=== PATIENT | male | born 1975 | race African-American/Black ===

== ENCOUNTER 2018-12-31 18:06 | Emergency (ER) | payer OTHER ==
[~2018-12-31] VITALS: Ht 172.7 cm; Wt 95.3 kg
--- NOTE | 2018-12-31 18:28 | ED EENT ---
History of Present Illness General Stated Complaint: R EYE PAIN Source: patient Exam Limitations: no limitations History of Present Illness Date Seen by Provider: Dec 31, 2018 Time Seen by Provider: 18:27 Initial Comments To ER with reports of right eye pain. This been present for 2-3 days. He states that he had some diesel exhaust fluid got on his gloves, this then dried and those crystals/powder got into his right eye. He's had some tearing of the right eye and burning sensation at the medial canthus for the past 2-3 days. Vision is unaffected. Timing/Duration: abrupt Severity: moderate Location: eye (R) Associated Symptoms: denies symptoms Allergies and Home Medications Allergies Coded Allergies: No Known Drug Allergies (Unverified , 12/31/18) Patient Home Medication List Home Medication List Reviewed: Yes Review of Systems Review of Systems Constitutional: see HPI Eyes: See HPI, Drainage Ears: No Symptoms Reported Nose: no symptoms reported Mouth: no symptoms reported Throat: no symptoms reported Respiratory: no symptoms reported Cardiovascular: no symptoms reported Musculoskeletal: no symptoms reported Past Lrhzukj-Dljnlh-Ejllxf Hx Patient Social History Recent Foreign Travel: No Contact w/Someone Who Travel: No Visual Acuity : Eye Location: Bilaterally Vision Acuity Degree: 20/25 Physical Exam Vital Signs Vital Signs - First Documented 12/31/18 18:11 Temp 96.4 Pulse 64 Resp 18 B/P (MAP) 141/90 (107) Pulse Ox 97 O2 Delivery Room Air Height, Weight, BMI Height: '" Weight: lbs. oz. kg; BMI Method: General Appearance: WD/WN, no apparent distress Eyes: bilateral eye normal inspection, bilateral eye PERRL, bilateral eye EOMI Ears: bilateral ear auricle normal, bilateral ear canal normal, bilateral ear TM normal Neck: non-tender, full range of motion Respiratory: no respiratory distress, no accessory muscle use Gastrointestinal: normal bowel sounds, non tender Neurologic/Psychiatric: alert, normal mood/affect, oriented x 3 Skin: normal color, warm/dry Progress/Results/Core Measures Results/Orders My Orders Orders - EBEN MONTEIRO APRN Tetracaine 0.5% Ophth Rosaline Sdv (Tetracai (12/31/18 18:30) Fluorescein Strips ([id number]) (12/31/18 18:30) Balanced Salt Irrigation Soln (Bss Irrig (12/31/18 18:30) Gentamicin 0.3% Ophth Solution (Garamyci (12/31/18 18:45) Medications Given in ED Current Medications Medications Dose Ordered Sig/Jaida Route Start Time Stop Time Status Last Admin Dose Admin Balanced Salt Solution 15 ml ONCE ONCE IR 12/31/18 18:30 12/31/18 18:31 DC 12/31/18 18:31 15 ML Fluorescein Sodium 1 mg ONCE ONCE OU 12/31/18 18:30 12/31/18 18:31 DC 12/31/18 18:31 1 MG Tetracaine HCl 4 ml ONCE ONCE OU 12/31/18 18:30 12/31/18 18:31 DC 12/31/18 18:31 4 ML Vital Signs/I&O 12/31/18 18:11 Temp 96.4 Pulse 64 Resp 18 B/P (MAP) 141/90 (107) Pulse Ox 97 O2 Delivery Room Air Departure Communication (Admissions) There is no corneal abrasions or foreign bodies identified. [facility] as [facility] does have [facility]. He lives in [facility] and will be returning there tomorrow, he is a truck service manager. Impression Primary Impression: Chemical conjunctivitis of right eye Disposition: HOME, SELF-CARE Condition: Stable Departure-Patient Inst. Decision time for Depature: 18:42 Referrals: NO,LOCAL PHYSICIAN (PCP/Family) Primary Care Physician Patient Instructions: Chemical Eye Injury (DC) Add. Discharge Instructions: 1. Return to ER for any concerns 2. Follow-up with your doctor next week Scripts Ketorolac Tromethamine (Acular) 5 Ml Drops 1 DROP OP Q6H PRN for PAIN-MILD TO MODERATE, #1 DROPS Prov: EBEN MONTEIRO [employer]VESTMENT SALES ASSISTANT 12/31/18 EBEN MONTEIRO INVESTMENT SALES ASSISTANT Dec 31, 2018 18:28
[2018-12-31] MEDS ORDERED: BSS 15 ML IR ONE (18:30)
[2018-12-31] MEDS ORDERED: FLUORESCEIN (FLUOR-I-STRIPS) 1 MG STRP OU ONE (18:30)
[2018-12-31] MEDS ORDERED: TETRACAINE 0.5% OPHTH SOLN 4 ML BTL (SINGLE DOSE ONLY) OU ONE (18:30)
[2018-12-31] MEDS ORDERED: B/P MEDS (18:42)
[2018-12-31] MEDS ORDERED: [UNRECOGNIZED DRUG - REMARK] (18:43)
[2018-12-31] MEDS ORDERED: KETO5DRO OP (18:44)
[2018-12-31] MEDS ORDERED: GENTAMICIN 0.3% OPHTH SOLN 5 ML OP SCH (18:45)
[2018-12-31 18:49] VITALS: BP 141/90
== END 2018-12-31 18:45 | disposition home or self-care (01) ==
LOC: ER 18:08
DX: T65.94XA Toxic effect of unspecified substance, undetermined, initial encounter (principal); H10.211 Acute toxic conjunctivitis, right eye
CPT/HCPCS: 99283